=== PATIENT | female | born 1950 | race Caucasian/White ===

== ENCOUNTER → 2017-02-24 | Day surgery (SDC) | payer OTHER, MEDICARE ==
[~2017-02-24] VITALS: Ht 170.2 cm; Wt 122.7 kg
[~2017-02-24] MED LIST: ACCUPRIL20 MG PO; ALEVE220 MG PO; ALIGN4 MG PO; ASPIR 8181 MG PO; CIPRO500 MG PO; COLACE100 MG PO; CPAP; CPAP INH; CRESTOR10 MG PO; CYMBALTA60 MG PO; DEXAMETHASONE2 MG PO; DRISDOL50000 UNIT PO; FISH OIL 1,0001 EACH PO; FLEXERIL10 MG PO; GABAPENTIN300 MG PO; HYDROCHLOROTHIA25 MG PO; KLONOPIN0.5 M1 PO; LEVAQUIN750 MG PO; LEVOTHROID(SYN75 MCG PO; LEVOTHYROXINE50 MCG PO; NEURONTIN300 MG PO; NORCO 10-325 T1 EACH PO; NORCO 5-325 MG1 TAB PO; NORCO 5-325 TA1 EACH PO; NORVASC5 MG PO; OXYGEN M-15 INH; PERCOCET 5-3251 EACH PO; QUINAPRIL HCL40 MG PO; THERAGRAN-M1 TAB PO; TRAVATAN Z OPH2.5 ML OPHTH; TYLENOL325 MG PO; ULTRAM50 MG PO; VITAMIN D1000 UNI1 PO; VITAMIN D1000 UNIT PO; VITAPULSE PO; ZOFRAN4 MG PO; ZYRTEC10 MG PO
== END | disposition disaster alternative care site (69) ==
LOC: GPOC 02-20 09:00 → GEND 08:33 → GPOC 09:00
PROC: 0DBL8ZZ Excision of Transverse Colon, Via Natural or Artificial Opening Endoscopic (ICD-10-PCS; principal; 2017-02-24)
DX: Z12.11 Encounter for screening for malignant neoplasm of colon (principal); K63.5 Polyp of colon; K57.30 Diverticulosis of large intestine without perforation or abscess without bleeding; K64.8 Other hemorrhoids; I50.32 Chronic diastolic (congestive) heart failure; E03.9 Hypothyroidism, unspecified; G47.34 Idiopathic sleep related nonobstructive alveolar hypoventilation; Z86.010 Personal history of colon polyps
CPT/HCPCS: J2405; J7030

== ENCOUNTER → 2017-02-27 | Outpatient (CLI) | payer OTHER, MEDICARE | END | disposition disaster alternative care site (69) | LOC: GBCOE 02-02 13:00 | DX: Z12.31 Encounter for screening mammogram for malignant neoplasm of breast (principal) | CPT/HCPCS: G0202 ==

== ENCOUNTER → 2017-04-18 | Outpatient (CLI) | payer OTHER, MEDICARE ==
[2017-04-18 12:31] LABS: HEMOGLOBIN 15.4 g/dL (10.0-15.0); MCH 28.4 pg (27.0-34.0); MCHC 32.8 gm/dL (32.0-36.5); MCV 86.7 fl (83.0-98.0); MPV 10.1 fl (9.4-12.4); RBC 5.42 M/uL (3.50-5.50); RDW-CV 13.4 % (11.9-14.6); WBC 13.7 K/uL (4.0-11.0)
== END ==
LOC: LGSMG 11:43
PROVIDERS: Internal Medicine
DX: Z01.818 Encounter for other preprocedural examination (principal)

== ENCOUNTER → 2017-04-30 | Day surgery (SDC) | payer OTHER ==
[~2017-04-30] VITALS: Ht 170.2 cm; Wt 119.7 kg
--- NOTE | ~2017-04-30 | OR ---
PATIENT'S NAME: HAYLEE LOFTON [facility] AGE: 67 Y [address] ROOM: [place] [address] LOCATION: [facility] ADMIT DATE: 04/30/2017 OR/Procedure Report DISCHARGE DATE: FAMILY PHYSICIAN: YAMEL ZEPEDA MD ATTENDING PHYSICIAN: Rafaela Blackwell SURGEON: Ton Martinez MD TEMPLATE STORAGE CLERK: DATE OF PROCEDURE: 04/30/2017 PROCEDURE: Left L2-L3 transforaminal epidural steroid injection. INDICATIONS: Lumbar disk disease with radiculopathy, lumbar spinal stenosis, and spondylolisthesis post laminectomy. DESCRIPTION OF PROCEDURE: Risks, benefits, and alternatives were explained to the patient, she wished to proceed. She was taken in the prone position. Fluoroscopy used to identify the L2-L3 interspace. The back was prepped with Betadine x3 and a sterile dressing applied on top. Next, fluoroscopy was used to guide a 5-inch 22-gauge spinal needle with gentle manual bend. Once this was felt to be in position, about 0.5 mL of contrast was injected in AP and the lateral views. This showed good epidural spread. No intrathecal or intravascular uptake. Next, a mixture of 2 mL of 2% lidocaine and 10 mg of preservative-free Decadron were injected without complication. The stylette placed, needle withdrawn, and hemostasis was achieved. COMPLICATIONS: None. BLOOD LOSS: None. TON MARTINEZ MD JJP/modl /[id number] d: 04/30/17 2119 t: 05/03/17 1344, OPERATIVE SUMMARY
== END ==
LOC: GPOC 04-27 14:00 → GSDC 13:17
PROC: 3E0R3BZ Introduction of Anesthetic Agent into Spinal Canal, Percutaneous Approach (ICD-10-PCS; principal; 2017-04-30)
PROC: 3E0R33Z Introduction of Anti-inflammatory into Spinal Canal, Percutaneous Approach (ICD-10-PCS; 2017-04-30)
DX: M51.16 Intervertebral disc disorders with radiculopathy, lumbar region (principal); M48.06 Spinal stenosis, lumbar region; M43.16 Spondylolisthesis, lumbar region; I10 Essential (primary) hypertension; E78.00 Pure hypercholesterolemia, unspecified; G47.33 Obstructive sleep apnea (adult) (pediatric); E66.9 Obesity, unspecified; Z79.82 Long term (current) use of aspirin; Z88.2 Allergy status to sulfonamides; Z79.891 Long term (current) use of opiate analgesic
CPT/HCPCS: J1100